=== PATIENT | female | born 1990 | race Caucasian/White ===

== ENCOUNTER 2019-01-20 03:12 | Emergency (ER) | payer OTHER ==
[~2019-01-20] VITALS: Ht 170.1 cm; Wt 136.1 kg
[~2019-01-20 03:12] MED LIST: AMOXICILLIN500 M3 PO; AMOXIL400 MG/5 M PO; CLINDAMYCIN HC300 MG PO; LIDEX 0.05% CRE15 GM T; Motrin,Rufen800 MG PO; NORCO 5-325 TA1 EACH PO; TYLENOL W/ CODEI5 ML PO; ULTRAM50 MG PO
== END 2019-01-20 04:46 | disposition home or self-care (01) ==
LOC: ED 03:12
DX: S66.911A Strain of unspecified muscle, fascia and tendon at wrist and hand level, right hand, initial encounter (principal); I10 Essential (primary) hypertension; W22.8XXA Striking against or struck by other objects, initial encounter; Y93.89 Activity, other specified; Y92.89 Other specified places as the place of occurrence of the external cause; Y99.8 Other external cause status

== ENCOUNTER 2019-08-03 21:00 | Emergency (ER) | payer SELFPAY ==
[~2019-08-03] VITALS: Ht 170.1 cm; Wt 136.1 kg
== END 2019-08-03 23:30 | disposition home or self-care (01) ==
LOC: ED 21:00
DX: S66.211A Strain of extensor muscle, fascia and tendon of right thumb at wrist and hand level, initial encounter (principal); X50.1XXA Overexertion from prolonged static or awkward postures, initial encounter; Y93.89 Activity, other specified; Y92.89 Other specified places as the place of occurrence of the external cause; Y99.9 Unspecified external cause status

== ENCOUNTER 2020-03-23 13:44 | Emergency (ER) | payer SELFPAY ==
[~2020-03-23] VITALS: Ht 170.1 cm; Wt 136.1 kg
[2020-03-23] MEDS ORDERED: CYCLOBENZAPRINE10 MG PO (15:51)
[2020-03-23] MEDS ORDERED: NORCO 5-325 TA1 EACH PO ×3 (15:51→16:57)
[2020-03-23] MEDS ORDERED: PREDNISONE20 M1 PO (15:51)
[2020-03-23] MEDS ORDERED: IBU800 MG PO (15:51)
== END 2020-03-23 16:01 | disposition home or self-care (01) ==
LOC: ED 13:44
DX: S39.012A Strain of muscle, fascia and tendon of lower back, initial encounter (principal); Z79.899 Other long term (current) drug therapy; X50.0XXA Overexertion from strenuous movement or load, initial encounter; Y93.89 Activity, other specified; Y92.89 Other specified places as the place of occurrence of the external cause; Y99.8 Other external cause status